=== PATIENT | male | born 1955 | race Caucasian/White ===

== ENCOUNTER 2019-11-22 16:10 | Day surgery (SDC) | payer OTHER ==
[2019-11-15 11:49] LABS: BASOPHILS # (AUTO) 0.1 X10'3 (0-0.2); BASOPHILS % (AUTO) 0.9 % (0-1); EOSINOPHILS # (AUTO) 0.1 X10'3 (0-0.9); EOSINOPHILS % (AUTO) 1.6 % (0-6); LYMPHOCYTES # (AUTO) 2.7 X10'3 (1.1-4.8); LYMPHOCYTES % (AUTO) 35.3 % (21-51); MEAN CORPUSCULAR HEMOGLOBIN 32.1 PG (27.0-31.0); MEAN CORPUSCULAR HGB CONC 34.8 g/dL (33.0-36.5); MEAN CORPUSCULAR VOLUME 92.1 FL (78-98); MEAN PLATELET VOLUME 9.3 FL (7.4-10.4); MONOCYTES # (AUTO) 0.7 X10'3 (0-0.9); MONOCYTES % (AUTO) 8.9 % (2-12); NEUTROPHILS # (AUTO) 4.1 X10'3 (1.8-7.7); NEUTROPHILS % (AUTO) 53.3 % (42-75); PRE OP HEMOGLOBIN 16.7 g/dL (14.0-17.9); PRE OP PLATELET COUNT 182 X10'3 (140-440); RED BLOOD COUNT 5.22 X10'6 (4.70-6.10); RED CELL DISTRIBUTION WIDTH 12.7 % (11.5-14.5)
[2019-11-15 11:58] LABS: ALBUMIN 4.7 G/DL (3.4-5.0); ALBUMIN/GLOBULIN RATIO 1.4 (1.1-1.5); ALKALINE PHOSPHATASE 65 IU/L (46-116); BLOOD UREA NITROGEN 12 MG/DL (7-18); CALCIUM 11.2 MG/DL (8.5-10.1); CHLORIDE 105 MMOL/L (99-107); CREATININE 0.75 MG/DL (0.60-1.10); PRE OP ALT 68 U/L (30-65); PRE OP ANION GAP 7 (8-16); PRE OP AST 31 U/L (10-37); PRE OP BILIRUB, TOTAL 0.7 MG/DL (0.0-1.0); PRE OP GLUCOSE 102 MG/DL (70-104); PRE OP POTASSIUM 4.3 MMOL/L (3.4-5.1); PRE OP SODIUM 141 MMOL/L (135-145); eGFR > 90 ML/MIN
[2019-11-22] VITALS (16 sets, daily range): BP systolic 88–144; BP diastolic 58–90
[~2019-11-22] VITALS: Ht 180.3 cm; Wt 105.2 kg
[2019-11-22] MEDS: potassium cl 20mEq in 1/2 NS 1,000 ML IV SCH ×2 (07:02→17:39)
[2019-11-22] MEDS: lisinopril 20mg tablet PO SCH (08:00)
[2019-11-22] MEDS: ascorbic acid 500mg tablet PO SCH ×2 (08:00→20:29)
[2019-11-22] MEDS: multivitamins, therapeutics tablet PO SCH (08:00)
[2019-11-22] MEDS: gabapentin 300mg capsule PO SCH ×3 (08:00→20:29)
[2019-11-22] MEDS: aspirin 325mg tablet PO SCH (08:30)
--- NOTE | 2019-11-22 14:38 | NUR ---
UNABLE TO MOVE BILATERAL LE, DT SPINAL, SENSATION AT UMBILICUS.
--- NOTE | 2019-11-22 14:38 | NUR ---
PT RECIEVED FROM OR VIA BED WITH OHTF.PT A&O,VSS,SKIN PINK AND DRY, RLE UNABLE TO MOVE DT BLOCK, PEDAL PULSES PRESENT. RUFUS DRESSING TO SUCTION CDI WITH KNEE WRAP ON, POWDER PACK APPLIED. 20 GAUGE PIV LUE PATENT AND RUNNING LR AT 100 ML/HR. PAIN AT 0 AT THIS TIME
--- NOTE | 2019-11-22 15:38 | NUR ---
PT TRANSFERRED VIA BED WITH OH AND ALL BELONGINGS, ROLANDO RÍOS GIVEN REPORT.PT A&O,VSS,SKIN PINK AND DRY, LE UNABLE TO MOVE DT BLOCK,SPINAL SENSATION AT UMBILICUS, PEDAL PULSES PRESENT. RUFUS DRESSING TO SUCTION CDI WITH KNEE WRAP ON, POWDER PACK APPLIED. 20 GAUGE PIV LUE PATENT AND RUNNING LR AT 100 ML/HR. PAIN AT 0 AT THIS TIME, ON Q PUMP ON AND RUNNING. BED DOWN RAILS UP AND PT LEFT IN CARE OF ROLANDO RÍOS
--- NOTE | 2019-11-22 15:40 | NUR ---
ASSUMED CARE, RECEIVED REPORT FROM SORIN RÍOS, POST OP VS STARTED. PATIENT REPORTS 0/10 PAIN. WILL CONTINUE TO MONITOR.
[~2019-11-22 16:10] MED LIST: AMLO5TAB16 PO; ATOR20TA66 PO; HYDROmorphone 1 mg/ml syringe IV PRN; HYDROmorphone inj. 0.5 MG/0.5 ML DISP.SYRIN IV PRN; LISI-600 PO; MIDAZolam 1mg/ml 10ml vial ONE; ROPIVAcaine 0.2% (10 MG/5 ML) BOLUS INJECTION ADDCANAL PRN; ROPIVAcaine 0.2%/PF PUMP/bolus 550 ML ADDCANAL SCH; ROPIVAcaine 0.5% (5mg/ml) 30ml vial ONE; acetaminophen 325mg tablet PO ONE; acetaminophen 325mg tablet PO PRN; bisacodyl 10mg suppository rectal RC PRN; cefazolin/dext.iso 2gm/50ml 50 ML IV ONE; celeCOXIB 100mg capsule PO ONE; cloNIDine hcl/PF 100mcg/ml inj ONE; diphenhydrAMINE 25mg capsule PO PRN; epiNEPHrine 1 mg/ml inj ONE; famotidine 20mg tablet PO ONE; fentaNYL/PF 50MCG/1 ML 2ML syringe ONE; gabapentin 300mg capsule PO ONE; ketorolac trometh. 30mg/ml inj. ONE; magnesium hydroxide 30ml (MOM) UD suspension PO PRN; meperidine/PF 25mg/ml syringe IV PRN; metoclopramide 5 mg/ml inj IV ONE; morphine 2 MG/ML inj. syringe IV PRN; morphine 4 MG/ML inj SYRINge IV PRN; ondansetron/PF 4mg/2ml inj IV PRN; oxyCODONE SR 10mg (sust. release) tab -2 tabs (20mg) PO ONE; oxyCODONE/APAP 10/325mg tablet PO PRN; proCHLORperazine 10 MG/2 ml inj IV PRN; ringers solution, lacted 1,000 ML IV SCH; tranexamic acid inj. 1,000 MG in normal saline 100 ML IV ONE; vancomycin 1,000mg inj ONE; vancomycin inj 1,500 MG in normal saline 300ml IV soln IV ONE
[2019-11-22] MEDS: cefazolin/dext.iso 2gm/50ml 50 ML IV SCH (16:30)
--- NOTE | 2019-11-22 18:20 | NUR ---
Problems reprioritized. Patient report given, questions answered & plan of care reviewed with DINORA RÍOS.
--- NOTE | 2019-11-22 18:30 | NUR ---
Patient in room [facility] 4011. I have received report from MICHOACANO BECERRA and had the opportunity to ask questions and assume patient care.
[2019-11-22] MEDS ORDERED: tranexamic acid inj. 1,000 MG in normal saline 100ml IV soln 100 ML IV ONE (19:00)
[2019-11-22] MEDS ORDERED: sennosides 8.6mg tablet PO SCH (21:00)
[2019-11-22] MEDS ORDERED: atorvastatin 20mg tablet PO SCH (21:00)
[2019-11-22] MEDS ORDERED: amLODIPine 5mg tablet PO SCH (21:00)
[2019-11-23] MEDS: cefazolin/dext.iso 2gm/50ml 50 ML IV SCH (00:16)
[2019-11-23 02:00] VITALS: BP 122/77
[2019-11-23] MEDS: potassium cl 20mEq in 1/2 NS 1,000 ML IV SCH ×2 (03:32→07:02)
[2019-11-23] MEDS: oxyCODONE/APAP 10/325mg tablet PO PRN ×3 (04:53→13:03)
[2019-11-23 06:00] VITALS: BP 129/80
--- NOTE | 2019-11-23 06:22 | NUR ---
Problems reprioritized. Patient report given, questions answered & plan of care reviewed with MICHOACANO BECKHAM.
--- NOTE | 2019-11-23 06:30 | NUR ---
Patient in room [facility] 4011. I have received report from Zeny RÍOS and had the opportunity to ask questions and assume patient care.
--- NOTE | 2019-11-23 06:39 | NUR ---
Patient in room [facility] 4011. I have received report from Zeny RÍOS and had the opportunity to ask questions and assume patient care.
[2019-11-23 07:35] LABS: BASOPHILS % (AUTO) 0.2 % (0-1); EOSINOPHILS % (AUTO) 0 % (0-6); HEMATOCRIT 39.8 % (42.0-52.0); HEMOGLOBIN 13.7 g/dl (14.0-17.9); LYMPHOCYTES # (AUTO) 1.3 X10'3 (1.1-4.8); LYMPHOCYTES % (AUTO) 13.2 % (21-51); MEAN CORPUSCULAR HEMOGLOBIN 31.7 PG (27.0-31.0); MEAN CORPUSCULAR HGB CONC 34.4 g/dL (33.0-36.5); MEAN CORPUSCULAR VOLUME 92.1 FL (78-98); MEAN PLATELET VOLUME 9.5 FL (7.4-10.4); MONOCYTES # (AUTO) 0.8 X10'3 (0-0.9); MONOCYTES % (AUTO) 7.7 % (2-12); NEUTROPHILS # (AUTO) 7.6 X10'3 (1.8-7.7); NEUTROPHILS % (AUTO) 78.9 % (42-75); PLATELET COUNT 156 X10'3 (140-440); RED BLOOD COUNT 4.32 X10'6 (4.70-6.10); RED CELL DISTRIBUTION WIDTH 12.5 % (11.5-14.5); WHITE BLOOD COUNT 9.7 X10'3 (4.5-11.0)
[2019-11-23 07:57] LABS: ANION GAP 9 (8-16); CHLORIDE 106 MMOL/L (99-107); POTASSIUM 4.5 MMOL/L (3.5-5.1); SODIUM 138 MMOL/L (135-145); TOTAL CARBON DIOXIDE 23.3 MMOL/L (24-32)
[2019-11-23] MEDS: ascorbic acid 500mg tablet PO SCH (08:42)
[2019-11-23] MEDS: multivitamins, therapeutics tablet PO SCH (08:43)
[2019-11-23] MEDS: gabapentin 300mg capsule PO SCH ×2 (08:43→13:00)
[2019-11-23] MEDS: aspirin 325mg tablet PO SCH (08:43)
[2019-11-23] MEDS: lisinopril 20mg tablet PO SCH (08:47)
[2019-11-23 10:00] VITALS: BP 121/87
[2019-11-23] MEDS ORDERED: ASPI-1 PO (10:56)
--- NOTE | 2019-11-23 12:13 | NUR ---
Joint Replacement Consult: Pt seen by WILLIE for written/verbal high protein ed w/ RD contact information provided. Pt declines additional proteins at this time. Will continue to monitor. Addendum: 11/23/19 at [address] Amended: Links added.
--- NOTE | 2019-11-23 13:15 | NUR ---
Safe DC. with spouse. all personal items with patient. Left in personal vehicle.
[2019-11-23] MEDS ORDERED: celeCOXIB 100mg capsule PO SCH (20:00)
== END 2019-11-23 13:10 | disposition home or self-care (01) ==
LOC: ORTHO 4S 16:10 → PAS 16:10 → UNDOADMOB 16:10 → ORTHO 4S 16:10 → PAS 11-23 13:10
PROVIDERS: ATTEND Orthopaedic Surgery
DX: M17.11 Unilateral primary osteoarthritis, right knee (principal); G89.18 Other acute postprocedural pain; I10 Essential (primary) hypertension; E78.5 Hyperlipidemia, unspecified; M19.90 Unspecified osteoarthritis, unspecified site; D50.0 Iron deficiency anemia secondary to blood loss (chronic); E66.9 Obesity, unspecified; Z68.33 Body mass index [BMI] 33.0-33.9, adult; Z87.891 Personal history of nicotine dependence; Z72.89 Other problems related to lifestyle; Z79.899 Other long term (current) drug therapy; Z79.82 Long term (current) use of aspirin; Z98.890 Other specified postprocedural states
CPT/HCPCS: 27447; 36415; 64448; 71046; 73560; 80051; 80053; 82948; 85025; 86885; 86900; 86901; 87081; 97110; 97116; 97530; A6454; C1713; C1776; J0171; J0735; J1885; J2250; J2765; J2795; J3010; J3370; J7120; 97162; A4215; A6449; A7000; G0378; J3480